=== PATIENT | male | born 1990 | race Caucasian/White ===

== ENCOUNTER 2022-06-29 10:56 | Outpatient (CLI) | payer BC ==
[~2022-06-29 10:56] MED LIST: Iopamidol 300 61% 100 ML VIAL FS ONE
== END 2022-06-29 10:57 | disposition home or self-care (01) ==
LOC: CSHCT 10:56
PROVIDERS: ATTEND Internal Medicine Critical Care Medicine
DX: D86.9 Sarcoidosis, unspecified (principal); K76.0 Fatty (change of) liver, not elsewhere classified
CPT/HCPCS: 71260